=== PATIENT | male | born 1940 | race Hispanic/Latino ===

== ENCOUNTER 2017-10-03 14:09 | Inpatient (IN) | payer MEDICARE ==
[2017-10-03] MEDS ORDERED: PROVENTIL IH ONE (14:56)
[2017-10-03] MEDS ORDERED: ATROVENT IH ONE (14:56)
--- NOTE | 2017-10-03 15:03 | Emergency Department Report ---
HPI - General Chief Complaint: Dyspnea/Respdistress Time Seen by Provider: 10/03/17 14:46 - HPI HPI: Room 20 The patient is a 77-year-old male presented with a chief complaint of "pneumonia." The patient states his home health nurse told him he had pneumonia and she come to the emergency department. The patient states for the past 2-3 days she's had a cough productive of white sputum. Patient does admit to rhinorrhea in addition to a subjective fever. Patient denies pain of any type. Patient denies sick contacts. 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 - Family History Family history: no significant - Social History Smoking Status: Former Smoker (none since 1985) Substance Use Type: None ED Review of Systems ROS: Stated complaint: RESPIRATORY DISTRESS Other details as noted in HPI Constitutional: fever (subjective) Respiratory: cough Physical Exam - Physical Exam Vital Signs: Vital Signs 10/03/17 10/03/17 14:32 14:49 Temperature 98.1 F Pulse Rate 105 H Respiratory 22 Rate Blood Pressure 149/75 O2 Sat by Pulse 90 Oximetry Physical Exam: GENERAL: The patient is well-developed well-nourished male lying on stretcher not appearing to be in acute distress. [] HEENT: Normocephalic. Atraumatic. Extraocular motions are intact. Patient has moist mucous membranes. NECK: Supple. Trachea midline CHEST/LUNGS: Diffuse rhonchi. HEART/CARDIOVASCULAR: Regular. There is no tachycardia. There is no gallop rub or murmur. ABDOMEN: Abdomen is soft, nontender. Patient has normal bowel sounds. There is no abdominal distention. SKIN: There is no rash. There is no edema. There is no diaphoresis. NEURO: The patient is awake, alert, and oriented. The patient is cooperative. The patient has normal speech MUSCULOSKELETAL: There is no evidence of acute injury. ED Course Vital Signs 10/03/17 10/03/17 14:32 14:49 Temperature 98.1 F Pulse Rate 105 H Respiratory 22 Rate Blood Pressure 149/75 O2 Sat by Pulse 90 Oximetry ED Medical Decision Making - Lab Data Result diagrams: 10/03/17 14:50 10/03/17 14:50 Laboratory Tests 10/03/17 10/03/17 10/03/17 14:50 14:50 14:50 WBC 9.0 RBC 4.90 Hgb 14.4 Hct 44.2 MCV 90 MCH 29 MCHC 33 RDW 15.1 Plt Count 305 Lymph % (Auto) 5.5 L [place] % (Auto) 10.3 H Eos % (Auto) 0.2 Baso % (Auto) 0.3 Lymph # 0.5 L [place] # 0.9 H Eos # 0.0 Baso # 0.0 Seg Neutrophils % 83.7 H Seg Neutrophils # 7.6 PT 13.7 INR 1.00 POC ABG pH POC ABG pCO2 POC ABG pO2 POC ABG HCO3 POC ABG Total CO2 POC ABG O2 Sat POC ABG Base Excess VBG pH FiO2 Sodium 142 Potassium 4.3 Chloride 95.2 L Carbon Dioxide 35 H Anion Gap 16 BUN 18 Creatinine 0.6 L Estimated GFR > 60 BUN/Creatinine Ratio 30 Glucose 137 H Lactic Acid Calcium 8.9 Total Bilirubin 0.30 AST 17 ALT 11 Alkaline Phosphatase 125 Total Protein 6.5 Albumin 3.2 L Albumin/Globulin Ratio 1.0 10/03/17 10/03/17 10/03/17 14:50 14:50 15:52 WBC RBC Hgb Hct MCV MCH MCHC RDW Plt Count Lymph % (Auto) [place] % (Auto) Eos % (Auto) Baso % (Auto) Lymph # [place] # Eos # Baso # Seg Neutrophils % Seg Neutrophils # PT INR POC ABG pH 7.310 L POC ABG pCO2 79.8 H POC ABG pO2 54 L POC ABG HCO3 40.1 POC ABG Total CO2 43 POC ABG O2 Sat 82 POC ABG Base Excess 14 VBG pH 7.310 L FiO2 28 Sodium Potassium Chloride Carbon Dioxide Anion Gap BUN Creatinine Estimated GFR BUN/Creatinine Ratio Glucose Lactic Acid 1.60 Calcium Total Bilirubin AST ALT Alkaline Phosphatase Total Protein Albumin Albumin/Globulin Ratio Influenza negative - EKG Data -: EKG Interpreted by Sc EKG shows normal: sinus rhythm Rate: normal - EKG Data When compared to previous EKG there are: previous EKG unavailable Interpretation: nonspecific ST-T wave john (flattened T-wave in lead aVL) - Radiology Data Radiology results: image reviewed (chest x-ray) interpreted by me: Chest [id number] out right lung status post lobectomy - Differential Diagnosis pneumonia, influenza, bronchitis, pulmonary edema Critical care attestation.: If time is entered above; I have spent that time in minutes in the direct care of this critically ill patient, excluding procedure time. ED Disposition Clinical Impression: Shortness of breath, Hypoxia Disposition: OP ADMIT IP TO THIS HOSP Is pt being admited?: Yes Does the pt Need Aspirin: Yes Condition: Fair Referrals: JENNIFER SEVERINO MD [Primary Care Provider] - 3-5 Days Time of Disposition: 16:17 (hospitalist paged (Dr Carlos))
[2017-10-03 15:16] LABS: Basophils % (Auto) 0.3 % (0.0-1.8); Eosinophils % (Auto) 0.2 % (0.0-4.3); Hematocrit 44.2 % (35.5-45.6); Hemoglobin 14.4 gm/dl (11.8-15.2); Lymphocytes # (Auto) 0.5 K/mm3 (1.2-5.4); Lymphocytes % (Auto) 5.5 % (13.4-35.0); Mean Corpuscular HGB Conc 33 % (32-34); Mean Corpuscular Hemoglobin 29 pg (28-32); Mean Corpuscular Volume 90 fl (84-94); Monocytes # (Auto) 0.9 K/mm3 (0.0-0.8); Monocytes % (Auto) 10.3 % (0.0-7.3); Platelet Count 305 K/mm3 (140-440); Red Cell Distribution Width 15.1 % (13.2-15.2)
[2017-10-03 15:37] LABS: Alanine Aminotransferase 11 units/L (7-56); Albumin 3.2 g/dL (3.9-5); BUN/Creatinine Ratio 30; Blood Urea Nitrogen 18 mg/dL (9-20); Calcium 8.9 mg/dL (8.4-10.2); Hemolysis Index 1
[2017-10-03] MEDS ORDERED: ASPIRIN PO ONE (16:18)
[2017-10-03 16:57] LABS: Bacteria,Urine 1+ /HPF (Negative); Bilirubin,Urine NEG (Negative); Blood,Urine SM (Negative); Color,Urine Yellow (Yellow); Hyaline Casts,Urine 13 /LPF; Mucus,Urine 3+ /HPF; Nitrite,Urine NEG (Negative)
--- NOTE | 2017-10-03 17:17 | XRay Report ---
FINAL REPORT PROCEDURE: XR CHEST 1V AP TECHNIQUE: Chest radiograph anteroposterior view. CPT 88621 HISTORY: possible Sepsis COMPARISON: No prior studies are available for comparison. FINDINGS: There is opacification of the right hemithorax. The heart/mediastinum is shifted to the right. Correlate for prior surgeries. Alternatively this could be related to right lung severe atelectasis and possible effusion. The left lung is well aerated. No pneumothorax is visible. IMPRESSION: Opacification of the right [place]wick thorax, with shift of the heart and mediastinum to the right.Correlate for prior surgeries. Alternatively this could be related to right lung severe atelectasis and possible effusion.
[2017-10-03] MEDS ORDERED: COLACE PO PRN (19:13)
--- NOTE | 2017-10-03 19:16 | History and Physical Report ---
History of Present Illness Date of examination: 10/03/17 Date of admission: 10/03/17 Chief complaint: CC Cough and SOB for 1 week History of present illness: KALISPEL: 77 y/o male comes in for Cough congestion and cough pproductive of Mucoid sputum Patient sent by Home health nurse for possible Pneumonia.Patient is a poor historian.Brother at bed side who gives most of the history.Apparently Cold and Cough and SOB for 2 weeks.No fever/Chills.No Loss of appetite.No exacerbating or Relieving factors. Past Medical History Previous Medical History?: Yes Hx Arthritis: Yes (gout) Additional medical history: quit smoking 1985, pulmonary blastomycosis, oxygen dependent Surgical History Right lobectomy secondary to cancer Family History Family history: no significant Social History Smoking Status: Former Smoker (none since 1985) Substance Use Type: None Medications and Allergies Allergies Allergy/AdvReac Type Severity Reaction Status Date / Time No Known Allergies Allergy Unverified 10/03/17 14:38 Home Medications Medication Instructions Recorded Confirmed Last Taken Type Aspirin [Adult Low Dose Aspirin EC] 81 mg PO DAILY 10/03/17 10/03/17 Unknown History Colchicine [Colcrys] 0.6 mg PO BID 10/03/17 10/03/17 10/03/17 History Docusate Sodium [Colace] 100 mg PO QDAY PRN 10/03/17 10/03/17 Unknown History guaiFENesin ER [Mucinex ER] 600 mg PO Q12H 10/03/17 10/03/17 Unknown History Active Meds: Active Medications Aspirin (Halfprin Ec) 81 mg PO DAILY MARK Colchicine (Colcrys) 0.6 mg PO BID [facility] Docusate Sodium (Colace) 100 mg PO QDAY PRN PRN Reason: Constipation Guaifenesin (Mucinex Er) 600 mg PO Q12H [facility] Review of Systems All systems: negative Constitutional: no weight loss, no weight gain, no fever, no chills Ears, nose, mouth and throat: no dysphagia, no hoarseness, no sore throat, no swelling in mouth, no swelling in throat Cardiovascular: shortness of breath, no chest pain, no orthopnea, no palpitations, no rapid/irregular heart beat Respiratory: cough, cough with sputum, dyspnea on exertion, congestion, wheezing Gastrointestinal: no abdominal pain, no nausea, no vomiting, no diarrhea, no constipation Genitourinary Male: no dysuria, no hematuria, no flank pain, no discharge Rectal: no pain Musculoskeletal: no neck stiffness, no neck pain, no shooting arm pain, no arm numbness/tingling Integumentary: no rash, no pruritis, no redness Neurological: no head injury, no transient paralysis, no paralysis, no seizures , no syncope Psychiatric: no anxiety, no memory loss, no change in sleep habits Endocrine: no cold intolerance, no heat intolerance, no polyphagia Hematologic/Lymphatic: no easy bruising, no easy bleeding Allergic/Immunologic: no urticaria, no allergic rhinitis Exam - Constitutional Vitals: Temp Pulse Resp BP Pulse Ox 98.1 F 103 H 16 138/78 95 10/03/17 14:32 10/03/17 18:35 10/03/17 18:35 10/03/17 18:35 10/03/17 18:35 General appearance: Present: no acute distress, well-nourished - EENT Eyes: Present: PERRL ENT: hearing intact, clear oral mucosa - Neck Neck: Present: supple, normal ROM - Respiratory Respiratory effort: normal Respiratory: right: diminished (Absent), left: rhonchi, bilateral: CTA - Cardiovascular Heart rate: 80 Rhythm: regular Heart Sounds: Present: S1 & S2. Absent: rub, click - Extremities Extremities: no ischemia, pulses intact, pulses symmetrical, No edema Peripheral Pulses: within normal limits - Abdominal General gastrointestinal: Present: soft, non-tender, non-distended, normal bowel sounds Male genitourinary: Present: normal - Rectal Rectal Exam: deferred - Integumentary Integumentary: Present: clear, warm, dry - Musculoskeletal Musculoskeletal: gait normal, strength equal bilaterally - Psychiatric Psychiatric: appropriate mood/affect, intact judgment & insight - Neurologic Neurologic: CNII-XII intact, moves all extremities - Allied Health Allied health notes reviewed: nursing, case management Results - Labs CBC & Chem 7: 10/04/17 03:55 10/04/17 03:55 Labs: Laboratory Last Values WBC 9.0 K/mm3 (4.5-11.0) 10/03/17 14:50 RBC 4.90 M/mm3 (3.65-5.03) 10/03/17 14:50 Hgb 14.4 gm/dl (11.8-15.2) 10/03/17 14:50 Hct 44.2 % (35.5-45.6) 10/03/17 14:50 MCV 90 fl (84-94) 10/03/17 14:50 MCH 29 pg (28-32) 10/03/17 14:50 MCHC 33 % (32-34) 10/03/17 14:50 RDW 15.1 % (13.2-15.2) 10/03/17 14:50 Plt Count 305 K/mm3 (140-440) 10/03/17 14:50 Lymph % (Auto) 5.5 % (13.4-35.0) L 10/03/17 14:50 [place] % (Auto) 10.3 % (0.0-7.3) H 10/03/17 14:50 Eos % (Auto) 0.2 % (0.0-4.3) 10/03/17 14:50 Baso % (Auto) 0.3 % (0.0-1.8) 10/03/17 14:50 Lymph # 0.5 K/mm3 (1.2-5.4) L 10/03/17 14:50 [place] # 0.9 K/mm3 (0.0-0.8) H 10/03/17 14:50 Eos # 0.0 K/mm3 (0.0-0.4) 10/03/17 14:50 Baso # 0.0 K/mm3 (0.0-0.1) 10/03/17 14:50 Seg Neutrophils % 83.7 % (40.0-70.0) H 10/03/17 14:50 Seg Neutrophils # 7.6 K/mm3 (1.8-7.7) 10/03/17 14:50 PT 13.7 Sec. (12.2-14.9) 10/03/17 14:50 INR 1.00 (0.87-1.13) 10/03/17 14:50 POC ABG pH 7.310 (7.35-7.45) L 10/03/17 15:52 POC ABG pCO2 79.8 (35-45) H 10/03/17 15:52 POC ABG pO2 54 (80-105) L 10/03/17 15:52 POC ABG HCO3 40.1 10/03/17 15:52 POC ABG Total CO2 43 10/03/17 15:52 POC ABG O2 Sat 82 10/03/17 15:52 POC ABG Base Excess 14 10/03/17 15:52 VBG pH 7.310 (7.320-7.420) L 10/03/17 14:50 FiO2 28 % 10/03/17 15:52 Sodium 142 mmol/L (137-145) 10/03/17 14:50 Potassium 4.3 mmol/L (3.6-5.0) 10/03/17 14:50 Chloride 95.2 mmol/L (98-107) L 10/03/17 14:50 Carbon Dioxide 35 mmol/L (22-30) H 10/03/17 14:50 Anion Gap 16 mmol/L 10/03/17 14:50 BUN 18 mg/dL (9-20) 10/03/17 14:50 Creatinine 0.6 mg/dL (0.8-1.5) L 10/03/17 14:50 Estimated GFR > 60 ml/min 10/03/17 14:50 BUN/Creatinine Ratio 30 % 10/03/17 14:50 Glucose 137 mg/dL (75-100) H 10/03/17 14:50 Lactic Acid 2.20 mmol/L (0.7-2.0) H* 10/03/17 17:42 Calcium 8.9 mg/dL (8.4-10.2) 10/03/17 14:50 Total Bilirubin 0.30 mg/dL (0.1-1.2) 10/03/17 14:50 AST 17 units/L (5-40) 10/03/17 14:50 ALT 11 units/L (7-56) 10/03/17 14:50 Alkaline Phosphatase 125 units/L (35-129) 10/03/17 14:50 Total Protein 6.5 g/dL (6.3-8.2) 10/03/17 14:50 Albumin 3.2 g/dL (3.9-5) L 10/03/17 14:50 Albumin/Globulin Ratio 1.0 % 10/03/17 14:50 Urine Color Yellow (Yellow) 10/03/17 16:45 Urine Turbidity Clear (Clear) 10/03/17 16:45 Urine pH 5.0 (5.0-7.0) 10/03/17 16:45 Ur Specific [place] 1.026 (1.003-1.030) 10/03/17 16:45 Urine Protein 100 mg/dl mg/dL (Negative) 10/03/17 16:45 Urine Glucose (UA) Neg mg/dL (Negative) 10/03/17 16:45 Urine Ketones 20 mg/dL (Negative) 10/03/17 16:45 Urine Blood Sm (Negative) 10/03/17 16:45 Urine Nitrite Neg (Negative) 10/03/17 16:45 Urine Bilirubin Neg (Negative) 10/03/17 16:45 Urine Urobilinogen 2.0 mg/dL (<2.0) 10/03/17 16:45 Ur Leukocyte Esterase Neg (Negative) 10/03/17 16:45 Urine WBC (Auto) 2.0 /HPF (0.0-6.0) 10/03/17 16:45 Urine RBC (Auto) 7.0 /HPF (0.0-6.0) 10/03/17 16:45 U Epithel Cells (Auto) 1.0 /HPF (0-13.0) 10/03/17 16:45 Urine Bacteria (Auto) 1+ /HPF (Negative) 10/03/17 16:45 Hyaline Casts 13 /LPF 10/03/17 16:45 Urine Mucus 3+ /HPF 10/03/17 16:45 - Imaging and Cardiology EKG: report reviewed (NSR nonspecific ST-T wave john (flattened T-wave in lead aVL)) Chest x-ray: report reviewed (Rt lung opacifaction) Assessment and Plan Advance Directives: Yes (FC) VTE prophylaxis?: Chemical Plan of care discussed with patient/family: Yes - Patient Problems (1) COPD with exacerbation Current Visit: Yes Status: Acute Plan to address problem: IV abx neb tx and solumedrol (2) Respiratory failure with hypoxia Current Visit: Yes Status: Acute Qualifiers: Chronicity: acute Qualified Code(s): J96.01 - Acute respiratory failure with hypoxia Plan to address problem: As Above.Bipap if necessary (3) Gout Current Visit: Yes Status: Inactive Plan to address problem: Cont allopurinol (4) DVT prophylaxis Current Visit: Yes Status: Acute Plan to address problem: on lovenox
[2017-10-03] MEDS ORDERED: ZOFRAN IV PRN (19:18)
[2017-10-03] MEDS ORDERED: DULCOLAX PR PRN (19:18)
[2017-10-03] MEDS ORDERED: MILK OF MAGNESIA PO PRN (19:18)
[2017-10-03] MEDS ORDERED: TYLENOL PO PRN (19:18)
[2017-10-03] MEDS ORDERED: MORPHINE IV PRN (19:35)
[2017-10-03] MEDS ORDERED: NACL 0.9% 1000 ML 1,000 ML IV SCH (20:00)
[2017-10-03] MEDS ORDERED: DUONEB *Not for PRN Use IH SCH (20:00)
[2017-10-03] MEDS ORDERED: LOVENOX SUB-Q ONE (20:15)
[2017-10-03] MEDS ORDERED: LEVAQUIN 500MG/100ML 500 MG/100 ML BAG IV ONE (20:15)
[2017-10-03] MEDS ORDERED: MUCINEX ER PO ONE (20:15)
[2017-10-03] MEDS: DUONEB *Not for PRN Use IH SCH (20:52)
[2017-10-03] MEDS: LEVAQUIN 750MG/150ML 750 MG/150 ML BAG IV SCH (21:19)
[2017-10-03] MEDS: MUCINEX ER PO SCH (21:20)
[2017-10-03] MEDS: LOVENOX SUB-Q SCH (21:20)
[2017-10-03] MEDS ORDERED: LOVENOX SUB-Q SCH (22:00)
[2017-10-04] MEDS: DUONEB *Not for PRN Use IH SCH ×4 (03:07→20:38)
[2017-10-04 04:42] LABS: Hematocrit 46.4 % (35.5-45.6); Hemoglobin 14.9 gm/dl (11.8-15.2); Mean Corpuscular HGB Conc 32 % (32-34); Mean Corpuscular Hemoglobin 30 pg (28-32); Mean Corpuscular Volume 92 fl (84-94); Platelet Count 317 K/mm3 (140-440); Red Blood Count 5.04 M/mm3 (3.65-5.03); Red Cell Distribution Width 15.3 % (13.2-15.2)
[2017-10-04 05:10] LABS: Alanine Aminotransferase 11 units/L (7-56); Albumin 3.5 g/dL (3.9-5); BUN/Creatinine Ratio 34; Blood Urea Nitrogen 24 mg/dL (9-20); Calcium 9.1 mg/dL (8.4-10.2); Hemolysis Index 2
[2017-10-04 05:30] LABS: Basophils % (Manual) 0 % (0.0-1.8); Eosinophils % (Manual) 0 % (0.0-4.3); Total Cells Counted 100
[2017-10-04 05:31] LABS: RBC Morphology Normal
[2017-10-04] MEDS: LEVAQUIN 750MG/150ML 750 MG/150 ML BAG IV SCH (10:00)
[2017-10-04] MEDS: LOVENOX SUB-Q SCH (10:52)
[2017-10-04] MEDS: HALFPRIN EC PO SCH (11:00)
[2017-10-04] MEDS: COLCRYS PO SCH ×3 (11:00→22:01)
[2017-10-04] MEDS: MUCINEX ER PO SCH ×2 (11:00→22:00)
[2017-10-04] MEDS: PEPCID PO SCH ×3 (11:00→22:01)
--- NOTE | 2017-10-04 11:55 | Cat Scan Report ---
CT CHEST WITHOUT CONTRAST: 10/04/17 CLINICAL: Pneumonia. TECHNIQUE: Volumetric acquisition and 1.25 mm axial scan reconstructions without contrast. FINDINGS: Status post right pneumonectomy with benign soft tissue density and calcifications in the pneumonectomy space. Mild patchy opacities in the left upper lobe and mild interstitial opacities of the left lower lobe. No pulmonary consolidation. No pleural effusion. The heart and mediastinum are shifted to the right. The heart is normal size with coronary artery calcifications. The pulmonary arteries are relatively large. Moderate calcification of the aorta. Normal thyroid, trachea and esophagus. The upper abdomen is remarkable for a small liver and pancreas. The gallbladder and bile ducts are normal. Bilateral renal cysts. The largest cyst is in the upper pole the right kidney measures 5.8 cm. Degenerative changes in the spine and no suspicious bone lesions. IMPRESSION: 1. Status post right pneumonectomy. 2. Mild left upper lobe patchy pneumonia. 3. Mild left lower lobe atelectasis versus scar.
--- NOTE | 2017-10-04 13:58 | Progress Note ---
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 Patient is a poor historian. Brother at bed side who gives most of the history. Apparently Cold and Cough and SOB for 2 weeks.No fever/Chills.No Loss of appetite.No exacerbating or Relieving factors. Left lobar pneumonia possible gram-negative * Continue antibiotics IV * Await culture results * Lactic acidosis noted will repeat. * Start on gentle hydration Sepsis secondary to pneumonia * Repeat lactic acid level, continue antibiotics as noted. Follow cultures. * Send urine Legionella antigen Left lateral thigh wound * With care consult COPD with exacerbation * Pulmonary consult. * IV antibiotics and nebulizer and steroids started we'll taper the latter as needed Acute respiratory failure with hypoxia * Continue oxygen with as tolerated to hold levels. Complete immobility due to frailty * Fall precautions, PT OT evaluation Gout * Continue allopurinol DVT and GI prophylaxis Plan of care discussed with the patient and sibling Anticipated discharge in 24-48 hours History Interval history: F/U PNEUMONIA Patient is examined today in no acute distress still feels congested also lethargic. Brothers the room and provides most of the inflammation. Denies any chest pain nausea vomiting or diarrhea. According to the brother the patient's positioning helps with his breathing. Hospitalist Physical - Physical exam Narrative exam: VITAL SIGNS: Reviewed. GENERAL: Chronically ill-appearing patient. Vital signs as documented. HEAD: No signs of head trauma. EYES: Pupils are equal. Extraocular motions intact. EARS: Hearing grossly intact. MOUTH: Oropharynx is normal. NECK: No adenopathy, no JVD. CHEST: Chest with diminished breath sounds bilaterally. No wheezes, rales, or rhonchi. CARDIAC: Regular rate and rhythm. S1 and S2, without murmurs, gallops, or rubs. VASCULAR: No Edema. Peripheral pulses normal and equal in all extremities. ABDOMEN: Soft, without detectable tenderness. No sign of distention. No rebound or guarding, and no masses palpated. Bowel Sounds normal. MUSCULOSKELETAL: Good range of motion of all major joints. Extremities without clubbing, cyanosis or edema. NEUROLOGIC EXAM: Alert and oriented x 3. No focal sensory or strength deficits. Speech normal. Follows commands. Nonambulatory. Bedbound. PSYCHIATRIC: Mood normal. SKIN: Left lateral thigh wound, well-healed graft site on the right medial thigh - Constitutional Vitals: Temp Pulse Resp BP Pulse Ox 97.8 F 99 H 18 169/86 96 10/04/17 08:05 10/04/17 09:15 10/04/17 09:15 10/04/17 08:05 10/04/17 09:04 General appearance: Present: no acute distress, well-nourished Results - Labs CBC & Chem 7: 10/04/17 03:55 10/04/17 03:55 Labs: Laboratory Last Values WBC 11.2 K/mm3 (4.5-11.0) H 10/04/17 03:55 RBC 5.04 M/mm3 (3.65-5.03) H 10/04/17 03:55 Hgb 14.9 gm/dl (11.8-15.2) 10/04/17 03:55 Hct 46.4 % (35.5-45.6) H 10/04/17 03:55 MCV 92 fl (84-94) 10/04/17 03:55 MCH 30 pg (28-32) 10/04/17 03:55 MCHC 32 % (32-34) 10/04/17 03:55 RDW 15.3 % (13.2-15.2) H 10/04/17 03:55 Plt Count 317 K/mm3 (140-440) 10/04/17 03:55 Lymph % (Auto) 5.5 % (13.4-35.0) L 10/03/17 14:50 [place] % (Auto) 10.3 % (0.0-7.3) H 10/03/17 14:50 Eos % (Auto) 0.2 % (0.0-4.3) 10/03/17 14:50 Baso % (Auto) 0.3 % (0.0-1.8) 10/03/17 14:50 Lymph # 0.5 K/mm3 (1.2-5.4) L 10/03/17 14:50 [place] # 0.9 K/mm3 (0.0-0.8) H 10/03/17 14:50 Eos # 0.0 K/mm3 (0.0-0.4) 10/03/17 14:50 Baso # 0.0 K/mm3 (0.0-0.1) 10/03/17 14:50 Add Manual Diff Complete 10/04/17 03:55 Total Counted 100 10/04/17 03:55 Seg Neutrophils % Laundry Housekeeping Aide 10/04/17 03:55 Seg Neuts % (Manual) 78.0 % (40.0-70.0) H 10/04/17 03:55 Band Neutrophils % 18.0 % 10/04/17 03:55 Lymphocytes % (Manual) 3.0 % (13.4-35.0) L 10/04/17 03:55 Reactive Lymphs % (Man) 0 % 10/04/17 03:55 Monocytes % (Manual) 1.0 % (0.0-7.3) 10/04/17 03:55 Eosinophils % (Manual) 0 % (0.0-4.3) 10/04/17 03:55 Basophils % (Manual) 0 % (0.0-1.8) 10/04/17 03:55 Metamyelocytes % 0 % 10/04/17 03:55 Myelocytes % 0 % 10/04/17 03:55 Promyelocytes % 0 % 10/04/17 03:55 Blast Cells % 0 % 10/04/17 03:55 Nucleated RBC % Not Reportable 10/04/17 03:55 Seg Neutrophils # 7.6 K/mm3 (1.8-7.7) 10/03/17 14:50 Seg Neutrophils # Man 8.7 K/mm3 (1.8-7.7) H 10/04/17 03:55 Band Neutrophils # 2.0 K/mm3 10/04/17 03:55 Lymphocytes # (Manual) 0.3 K/mm3 (1.2-5.4) L 10/04/17 03:55 Abs React Lymphs (Man) 0.0 K/mm3 10/04/17 03:55 Monocytes # (Manual) 0.1 K/mm3 (0.0-0.8) 10/04/17 03:55 Eosinophils # (Manual) 0.0 K/mm3 (0.0-0.4) 10/04/17 03:55 Basophils # (Manual) 0.0 K/mm3 (0.0-0.1) 10/04/17 03:55 Metamyelocytes # 0.0 K/mm3 10/04/17 03:55 Myelocytes # 0.0 K/mm3 10/04/17 03:55 Promyelocytes # 0.0 K/mm3 10/04/17 03:55 Blast Cells # 0.0 K/mm3 10/04/17 03:55 WBC Morphology Not Reportable 10/04/17 03:55 Hypersegmented Neuts Not Reportable 10/04/17 03:55 Hyposegmented Neuts Not Reportable 10/04/17 03:55 Hypogranular Neuts Not Reportable 10/04/17 03:55 Smudge Cells Not Reportable 10/04/17 03:55 Toxic Granulation Not Reportable 10/04/17 03:55 Toxic Vacuolation Not Reportable 10/04/17 03:55 Dohle Bodies Not Reportable 10/04/17 03:55 Pelger-Huet Anomaly Not Reportable 10/04/17 03:55 Pardeep Rods Not Reportable 10/04/17 03:55 Platelet Estimate Appears normal 10/04/17 03:55 Clumped Platelets Not Reportable 10/04/17 03:55 Plt Clumps, EDTA Not Reportable 10/04/17 03:55 Large Platelets Not Reportable 10/04/17 03:55 Giant Platelets Not Reportable 10/04/17 03:55 Platelet Satelliting Not Reportable 10/04/17 03:55 Plt Morphology Comment Not Reportable 10/04/17 03:55 RBC Morphology Normal 10/04/17 03:55 Dimorphic RBCs Not Reportable 10/04/17 03:55 Polychromasia Not Reportable 10/04/17 03:55 Hypochromasia Not Reportable 10/04/17 03:55 Poikilocytosis Not Reportable 10/04/17 03:55 Anisocytosis Not Reportable 10/04/17 03:55 Microcytosis Not Reportable 10/04/17 03:55 Macrocytosis Not Reportable 10/04/17 03:55 Spherocytes Not Reportable 10/04/17 03:55 Pappenheimer Bodies Not Reportable 10/04/17 03:55 Sickle Cells Not Reportable 10/04/17 03:55 Target Cells Not Reportable 10/04/17 03:55 Tear Drop Cells Not Reportable 10/04/17 03:55 Ovalocytes Not Reportable 10/04/17 03:55 Helmet Cells Not Reportable 10/04/17 03:55 [place] Bodies Not Reportable 10/04/17 03:55 Enochs Rings Not Reportable 10/04/17 03:55 Aditi Cells Not Reportable 10/04/17 03:55 Bite Cells Not Reportable 10/04/17 03:55 Crenated Cell Not Reportable 10/04/17 03:55 Elliptocytes Not Reportable 10/04/17 03:55 Acanthocytes (Spur) Not Reportable 10/04/17 03:55 Rouleaux Not Reportable 10/04/17 03:55 Hemoglobin C Crystals Not Reportable 10/04/17 03:55 Schistocytes Not Reportable 10/04/17 03:55 Malaria parasites Not Reportable 10/04/17 03:55 Aleksandar Bodies Not Reportable 10/04/17 03:55 Hem Pathologist Commnt No 10/04/17 03:55 PT 13.7 Sec. (12.2-14.9) 10/03/17 14:50 INR 1.00 (0.87-1.13) 10/03/17 14:50 POC ABG pH 7.310 (7.35-7.45) L 10/03/17 15:52 POC ABG pCO2 79.8 (35-45) H 10/03/17 15:52 POC ABG pO2 54 (80-105) L 10/03/17 15:52 POC ABG HCO3 40.1 10/03/17 15:52 POC ABG Total CO2 43 10/03/17 15:52 POC ABG O2 Sat 82 10/03/17 15:52 POC ABG Base Excess 14 10/03/17 15:52 VBG pH 7.310 (7.320-7.420) L 10/03/17 14:50 FiO2 28 % 10/03/17 15:52 Sodium 144 mmol/L (137-145) 10/04/17 03:55 Potassium 5.0 mmol/L (3.6-5.0) 10/04/17 03:55 Chloride 95.2 mmol/L (98-107) L 10/04/17 03:55 Carbon Dioxide 35 mmol/L (22-30) H 10/04/17 03:55 Anion Gap 19 mmol/L 10/04/17 03:55 BUN 24 mg/dL (9-20) H 10/04/17 03:55 Creatinine 0.7 mg/dL (0.8-1.5) L 10/04/17 03:55 Estimated GFR > 60 ml/min 10/04/17 03:55 BUN/Creatinine Ratio 34 % 10/04/17 03:55 Glucose 176 mg/dL (75-100) H 10/04/17 03:55 Hemoglobin A1c 5.6 % (4-6) 10/03/17 14:50 Lactic Acid 1.20 mmol/L (0.7-2.0) 10/04/17 09:12 Calcium 9.1 mg/dL (8.4-10.2) 10/04/17 03:55 Total Bilirubin 0.30 mg/dL (0.1-1.2) 10/04/17 03:55 AST 17 units/L (5-40) 10/04/17 03:55 ALT 11 units/L (7-56) 10/04/17 03:55 Alkaline Phosphatase 132 units/L (35-129) H 10/04/17 03:55 Total Protein 6.9 g/dL (6.3-8.2) 10/04/17 03:55 Albumin 3.5 g/dL (3.9-5) L 10/04/17 03:55 Albumin/Globulin Ratio 1.0 % 10/04/17 03:55 Urine Color Yellow (Yellow) 10/03/17 16:45 Urine Turbidity Clear (Clear) 10/03/17 16:45 Urine pH 5.0 (5.0-7.0) 10/03/17 16:45 Ur Specific [place] 1.026 (1.003-1.030) 10/03/17 16:45 Urine Protein 100 mg/dl mg/dL (Negative) 10/03/17 16:45 Urine Glucose (UA) Neg mg/dL (Negative) 10/03/17 16:45 Urine Ketones 20 mg/dL (Negative) 10/03/17 16:45 Urine Blood Sm (Negative) 10/03/17 16:45 Urine Nitrite Neg (Negative) 10/03/17 16:45 Urine Bilirubin Neg (Negative) 10/03/17 16:45 Urine Urobilinogen 2.0 mg/dL (<2.0) 10/03/17 16:45 Ur Leukocyte Esterase Neg (Negative) 10/03/17 16:45 Urine WBC (Auto) 2.0 /HPF (0.0-6.0) 10/03/17 16:45 Urine RBC (Auto) 7.0 /HPF (0.0-6.0) 10/03/17 16:45 U Epithel Cells (Auto) 1.0 /HPF (0-13.0) 10/03/17 16:45 Urine Bacteria (Auto) 1+ /HPF (Negative) 10/03/17 16:45 Hyaline Casts 13 /LPF 10/03/17 16:45 Urine Mucus 3+ /HPF 10/03/17 16:45 - Imaging and Cardiology Chest x-ray: image reviewed (left lobar pneumonia) CT scan - chest: image reviewed (left lobar pneumonia with atelectasis)
[2017-10-04] MEDS: NACL 0.9% 1000 ML 1,000 ML IV SCH (14:05)
[2017-10-04] MEDS: ZITHROMAX 500 MG in NACL 0.9% 250ML 250 ML IV SCH (15:24)
[2017-10-04] MEDS: cefTRIAXone 2 GM in NACL 0.9% 20 ML IV SCH (16:30)
--- NOTE | 2017-10-04 20:53 | Event Note ---
Date: 10/04/[address] Carlos thank you for asking us to participate in the care of this patient This 77 year old white male admitted with cough and productive white sputum.Patient also complained shortness of breath. Denies chest pain, fever or chills.Patient has history of smoking cigarets. Stopped smoking 1985.Unable to get furthur history.Patients chest xray showing complete Opacification of right chest.Patient has right pneumonectomy.. No KNOwn drug allergies.Patient has history of Blastomycosis. IMpression: 1. Acute hypercapnic and hypxic respiratory failure. 2. COPD Exacerbation. 3. History of right pneumonectomy. 4. Pneumonia PLAN: 1. O2 2 litres via nasal canula. 2. Albuterol/atrovent aerosol treatments q 6 hours. 3. Continue I/V solumedral 4. Continue cef trioxone and Zithromax. 5. Continue Lovenox. 6. Continue Famotadine. .
[2017-10-05] MEDS: DUONEB *Not for PRN Use IH SCH ×4 (01:59→21:20)
[2017-10-05] MEDS: PERCOCET 5/325 PO PRN ×2 (04:22→10:13)
[2017-10-05 07:11] LABS: Hemoglobin 12.4 gm/dl (11.8-15.2); Mean Corpuscular HGB Conc 32 % (32-34); Mean Corpuscular Hemoglobin 29 pg (28-32); Mean Corpuscular Volume 92 fl (84-94); Platelet Count 277 K/mm3 (140-440); Red Blood Count 4.21 M/mm3 (3.65-5.03); Red Cell Distribution Width 14.9 % (13.2-15.2)
[2017-10-05 07:17] LABS: Hematocrit 40.7 % (35.5-45.6)
[2017-10-05 07:25] LABS: BUN/Creatinine Ratio 38; Blood Urea Nitrogen 30 mg/dL (9-20); Calcium 8.3 mg/dL (8.4-10.2); Hemolysis Index 20
[2017-10-05] MEDS ORDERED: ROCEPHIN/NS 2 GM/100 ML 2 GM/100 ML BAG IV SCH (10:00)
[2017-10-05] MEDS: LOVENOX SUB-Q SCH (10:05)
[2017-10-05] MEDS: MUCINEX ER PO SCH ×2 (10:06→21:00)
[2017-10-05] MEDS: PEPCID PO SCH ×2 (10:06→21:00)
[2017-10-05] MEDS: COLCRYS PO SCH ×2 (10:07→21:00)
[2017-10-05] MEDS: HALFPRIN EC PO SCH (10:07)
[2017-10-05] MEDS: ZITHROMAX 500 MG in NACL 0.9% 250ML 250 ML IV SCH (10:12)
[2017-10-05] MEDS: cefTRIAXone 2 GM in NACL 0.9% 20 ML IV SCH (10:12)
[2017-10-05] MEDS: NACL 0.9% 1000 ML 1,000 ML IV SCH ×2 (12:46→20:51)
--- NOTE | 2017-10-05 21:44 | Progress Note ---
Assessment and Plan Patient is in deep sleep. No acute respiratory distress. O2 saturation 97% on 3 litres O2. - Patient Problems (1) COPD with exacerbation Current Visit: Yes Status: Acute Plan to address problem: O2 3 litres via nasal canula. Albuterol/atrovent aerosol treatments q 6 hours. Continue I/V solumedral. (2) Respiratory failure with hypoxia Current Visit: Yes Status: Acute Qualifiers: Chronicity: acute Qualified Code(s): J96.01 - Acute respiratory failure with hypoxia Plan to address problem: O2 3 litres via nasa canula. Albuerol/atrovent aerosol treatments q 6 hurs. Cntinue I/V solumedral. Continue S/C Lovenox. Continue famotadine. (3) Pneumonia Current Visit: Yes Status: Acute Plan to address problem: Patient is on ceftrioxone and zithromax. (4) H/O pneumonectomy Current Visit: Yes Status: Acute Plan to address problem: Patient has history of right pneumonectomy. Subjective Date of service: 10/05/17 Interval history: Patient is in deep sleep. No acute respiratory distress. O2 saturation 97% on 3 litres O2. Objective Vital Signs - 12hr 10/05/17 10/05/17 10/05/17 10:13 11:13 13:05 Temperature 98.0 F Pulse Rate 89 Pulse Rate [ Anterior Bilateral Throughout] Respiratory 22 20 Rate Respiratory Rate [Anterior Bilateral Throughout] Respiratory 22 Rate [Left Foot ] Blood Pressure 127/47 O2 Sat by Pulse 96 Oximetry 10/05/17 10/05/17 14:37 14:50 Temperature Pulse Rate Pulse Rate [ 96 H 94 H Anterior Bilateral Throughout] Respiratory Rate Respiratory 17 16 Rate [Anterior Bilateral Throughout] Respiratory Rate [Left Foot ] Blood Pressure O2 Sat by Pulse Oximetry Constitutional: no acute distress, asleep Eyes: non-icteric ENT: oropharynx moist Neck: supple, no lymphadenopathy Ascultation: Right: diminished breath sounds (ABsent breath sounds on right side.), Bilateral: rhonchi ( few rhonchi on left side.) Cardiovascular: regular rate and rhythm Gastrointestinal: normoactive bowel sounds Extremities: no cyanosis, no edema Neurologic: non-focal exam, pupils equal and round, other (Patient is in deep sleep) Psychiatric: other (Patient is in deep sleep) CBC and BMP: 10/05/17 06:29 10/05/17 06:29 ABG, PT/INR, D-dimer: ABG POC ABG pH 7.310 (7.35-7.45) L 10/03/17 15:52 POC ABG pCO2 79.8 (35-45) H 10/03/17 15:52 POC ABG pO2 54 (80-105) L 10/03/17 15:52 POC ABG HCO3 40.1 10/03/17 15:52 POC ABG Total CO2 43 10/03/17 15:52 POC ABG O2 Sat 82 10/03/17 15:52 PT/INR, D-dimer PT 13.7 Sec. (12.2-14.9) 10/03/17 14:50 INR 1.00 (0.87-1.13) 10/03/17 14:50 Abnormal lab findings: Abnormal Labs 10/03/17 10/03/17 10/03/17 14:50 14:50 14:50 WBC RBC Hct RDW Lymph % (Auto) 5.5 L [place] % (Auto) 10.3 H Lymph # 0.5 L [place] # 0.9 H Seg Neutrophils % 83.7 H Seg Neuts % (Manual) Lymphocytes % (Manual) Seg Neutrophils # Man Lymphocytes # (Manual) POC ABG pH POC ABG pCO2 POC ABG pO2 VBG pH 7.310 L Chloride 95.2 L Carbon Dioxide 35 H BUN Creatinine 0.6 L Glucose 137 H Lactic Acid Calcium Alkaline Phosphatase Albumin 3.2 L 10/03/17 10/03/17 10/04/17 15:52 17:42 03:55 WBC 11.2 H RBC 5.04 H Hct 46.4 H RDW 15.3 H Lymph % (Auto) [place] % (Auto) Lymph # Nelson # Seg Neutrophils % Seg Neuts % (Manual) 78.0 H Lymphocytes % (Manual) 3.0 L Seg Neutrophils # Man 8.7 H Lymphocytes # (Manual) 0.3 L POC ABG pH 7.310 L POC ABG pCO2 79.8 H POC ABG pO2 54 L VBG pH Chloride Carbon Dioxide BUN Creatinine Glucose Lactic Acid 2.20 H* Calcium Alkaline Phosphatase Albumin 10/04/17 10/05/17 10/05/17 03:55 06:29 06:29 WBC 12.3 H RBC Hct RDW Lymph % (Auto) [place] % (Auto) Lymph # [place] # Seg Neutrophils % Seg Neuts % (Manual) Lymphocytes % (Manual) Seg Neutrophils # Man Lymphocytes # (Manual) POC ABG pH POC ABG pCO2 POC ABG pO2 VBG pH Chloride 95.2 L Carbon Dioxide 35 H 31 H BUN 24 H 30 H Creatinine 0.7 L Glucose 176 H 148 H Lactic Acid Calcium 8.3 L Alkaline Phosphatase 132 H Albumin 3.5 L Chest x-ray: report reviewed (Complete Opacification on right side.), image reviewed CT scan - chest: report reviewed (Right pneumonectomy and patchy infiltrate on the left.), image reviewed
[2017-10-06] MEDS: DUONEB *Not for PRN Use IH SCH ×4 (01:39→19:07)
[2017-10-06] MEDS: MUCINEX ER PO SCH ×2 (10:13→21:25)
[2017-10-06] MEDS: PEPCID PO SCH ×2 (10:14→21:26)
[2017-10-06] MEDS: LOVENOX SUB-Q SCH (10:14)
[2017-10-06] MEDS: HALFPRIN EC PO SCH (10:14)
[2017-10-06] MEDS: COLCRYS PO SCH ×2 (10:14→21:25)
[2017-10-06] MEDS: cefTRIAXone 2 GM in NACL 0.9% 20 ML IV SCH (10:21)
[2017-10-06] MEDS: ZITHROMAX 500 MG in NACL 0.9% 250ML 250 ML IV SCH (10:21)
[2017-10-06] MEDS ORDERED: Fluarix Quad 2017-2018(36 MOS+ IM ONE (12:00)
--- NOTE | 2017-10-06 18:04 | Progress Note ---
Assessment and Plan Patient alert, awake. No acute respiratory distress. O2 saturation 97% on 3 litres O2.Patients PO2 54 on room air. Patient is candidate for home O2. - Patient Problems (1) COPD with exacerbation Current Visit: Yes Status: Acute Plan to address problem: O2 3 litres via nasal canula. Albuterol/atrovent aerosol treatments q 6 hours. Continue I/V solumedral. (2) Respiratory failure with hypoxia Current Visit: Yes Status: Acute Qualifiers: Chronicity: acute Qualified Code(s): J96.01 - Acute respiratory failure with hypoxia Plan to address problem: O2 3 litres via nasa canula. Albuerol/atrovent aerosol treatments q 6 hurs. Cntinue I/V solumedral. Continue S/C Lovenox. Continue famotadine. (3) Pneumonia Current Visit: Yes Status: Acute Plan to address problem: Patient is on ceftrioxone and zithromax. (4) H/O pneumonectomy Current Visit: Yes Status: Acute Plan to address problem: Patient has history of right pneumonectomy. Subjective Date of service: 10/06/17 Interval history: Patient alert, awake. No acute respiratory distress. O2 saturation 97% on 3 litres O2.Patients PO2 54 on room air. Patient is candidate for home O2. Objective Vital Signs - 12hr 10/06/17 10/06/17 10/06/17 07:45 08:44 08:55 Temperature 97.3 F L Pulse Rate 76 Pulse Rate [ 73 77 Anterior Bilateral Throughout] Respiratory 20 Rate Respiratory 20 20 Rate [Anterior Bilateral Throughout] Blood Pressure 129/63 O2 Sat by Pulse 99 100 Oximetry 10/06/17 10/06/17 10/06/17 13:37 14:27 14:44 Temperature 97.6 F Pulse Rate 74 Pulse Rate [ 74 75 Anterior Bilateral Throughout] Respiratory 20 Rate Respiratory 20 20 Rate [Anterior Bilateral Throughout] Blood Pressure 123/59 O2 Sat by Pulse 97 Oximetry Constitutional: no acute distress, alert Eyes: non-icteric ENT: oropharynx moist Neck: supple, no lymphadenopathy Ascultation: Right: diminished breath sounds (ABsent breath sounds on right side.), Bilateral: rhonchi ( few rhonchi on left side.) Cardiovascular: regular rate and rhythm Gastrointestinal: normoactive bowel sounds Extremities: no cyanosis, no edema Neurologic: non-focal exam, pupils equal and round, other (Patient is in deep sleep) Psychiatric: other (Patient is in deep sleep) CBC and BMP: 10/05/17 06:29 10/05/17 06:29 ABG, PT/INR, D-dimer: ABG POC ABG pH 7.310 (7.35-7.45) L 10/03/17 15:52 POC ABG pCO2 79.8 (35-45) H 10/03/17 15:52 POC ABG pO2 54 (80-105) L 10/03/17 15:52 POC ABG HCO3 40.1 10/03/17 15:52 POC ABG Total CO2 43 10/03/17 15:52 POC ABG O2 Sat 82 10/03/17 15:52 PT/INR, D-dimer PT 13.7 Sec. (12.2-14.9) 10/03/17 14:50 INR 1.00 (0.87-1.13) 10/03/17 14:50 Abnormal lab findings: Abnormal Labs 10/03/17 10/03/17 10/03/17 14:50 14:50 14:50 WBC RBC Hct RDW Lymph % (Auto) 5.5 L [place] % (Auto) 10.3 H Lymph # 0.5 L [place] # 0.9 H Seg Neutrophils % 83.7 H Seg Neuts % (Manual) Lymphocytes % (Manual) Seg Neutrophils # Man Lymphocytes # (Manual) POC ABG pH POC ABG pCO2 POC ABG pO2 VBG pH 7.310 L Chloride 95.2 L Carbon Dioxide 35 H BUN Creatinine 0.6 L Glucose 137 H Lactic Acid Calcium Alkaline Phosphatase Albumin 3.2 L 10/03/17 10/03/17 10/04/17 15:52 17:42 03:55 WBC 11.2 H RBC 5.04 H Hct 46.4 H RDW 15.3 H Lymph % (Auto) [place] % (Auto) Lymph # [place] # Seg Neutrophils % Seg Neuts % (Manual) 78.0 H Lymphocytes % (Manual) 3.0 L Seg Neutrophils # Man 8.7 H Lymphocytes # (Manual) 0.3 L POC ABG pH 7.310 L POC ABG pCO2 79.8 H POC ABG pO2 54 L VBG pH Chloride Carbon Dioxide BUN Creatinine Glucose Lactic Acid 2.20 H* Calcium Alkaline Phosphatase Albumin 10/04/17 10/05/17 10/05/17 03:55 06:29 06:29 WBC 12.3 H RBC Hct RDW Lymph % (Auto) [place] % (Auto) Lymph # [place] # Seg Neutrophils % Seg Neuts % (Manual) Lymphocytes % (Manual) Seg Neutrophils # Man Lymphocytes # (Manual) POC ABG pH POC ABG pCO2 POC ABG pO2 VBG pH Chloride 95.2 L Carbon Dioxide 35 H 31 H BUN 24 H 30 H Creatinine 0.7 L Glucose 176 H 148 H Lactic Acid Calcium 8.3 L Alkaline Phosphatase 132 H Albumin 3.5 L
--- NOTE | 2017-10-06 18:24 | Progress Note ---
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 Patient is a poor historian. Brother at bed side who gives most of the history. Apparently Cold and Cough and SOB for 2 weeks.No fever/Chills.No Loss of appetite.No exacerbating or Relieving factors. Left lobar pneumonia possible gram-negative Continue antibiotics IV Await culture results Lactic acidosis noted will repeat. Start on gentle hydration Sepsis secondary to pneumonia Repeat lactic acid level, continue antibiotics as noted. Follow cultures. Send urine Legionella antigen Left lateral thigh wound With care consult COPD with exacerbation Pulmonary consult appreciated IV antibiotics and nebulizer and steroids started we'll taper the latter as needed Acute respiratory failure with hypoxia, hx of R pneumonectomy Continue oxygen with as tolerated to hold levels. Complete immobility due to frailty Fall precautions, PT OT evaluation Gout Continue allopurinol Plan of care discussed with the patient and sibling Anticipated discharge in 1-2 days History Interval history: Review of systems Constitutional: No fevers, no malaise, no joint pains CVS: No chest pain, no orthopnea, no dyspnea on exertion, no pedal edema GI: No abdominal pain, no diarrhea, no vomiting, no constipation Respiratory: admits shortness of breath, and dry cough, no wheezing Hospitalist Physical - Physical exam Narrative exam: VITAL SIGNS: Reviewed. GENERAL: Chronically ill-appearing patient. Vital signs as documented. HEAD: No signs of head trauma. EYES: Pupils are equal. Extraocular motions intact. EARS: Hearing grossly intact. MOUTH: Oropharynx is normal. NECK: No adenopathy, no JVD. CHEST: Chest with diminished breath sounds bilaterally. No wheezes, rales, or rhonchi. CARDIAC: Regular rate and rhythm. S1 and S2, without murmurs, gallops, or rubs. VASCULAR: No Edema. Peripheral pulses normal and equal in all extremities. ABDOMEN: Soft, without detectable tenderness. No sign of distention. No rebound or guarding, and no masses palpated. Bowel Sounds normal. MUSCULOSKELETAL: Good range of motion of all major joints. Extremities without clubbing, cyanosis or edema. NEUROLOGIC EXAM: Alert and oriented x 3. No focal sensory or strength deficits. Speech normal. Follows commands. Nonambulatory. Bedbound. PSYCHIATRIC: Mood normal. SKIN: Left lateral thigh wound, well-healed graft site on the right medial thigh - Constitutional Vitals: Temp Pulse Resp BP Pulse Ox 97.6 F 74 20 123/59 97 10/06/17 14:44 10/06/17 14:44 10/06/17 14:44 10/06/17 14:44 10/06/17 14:44 General appearance: Present: no acute distress, well-nourished Results - Labs CBC & Chem 7: 10/05/17 06:29 10/05/17 06:29 Labs: Laboratory Last Values WBC 12.3 K/mm3 (4.5-11.0) H 10/05/17 06:29 RBC 4.21 M/mm3 (3.65-5.03) 10/05/17 06:29 Hgb 12.4 gm/dl (11.8-15.2) 10/05/17 06:29 Hct 40.7 % (35.5-45.6) 10/05/17 06:29 MCV 92 fl (84-94) 10/05/17 06:29 MCH 29 pg (28-32) 10/05/17 06:29 MCHC 32 % (32-34) 10/05/17 06:29 RDW 14.9 % (13.2-15.2) 10/05/17 06:29 Plt Count 277 K/mm3 (140-440) 10/05/17 06:29 Lymph % (Auto) 5.5 % (13.4-35.0) L 10/03/17 14:50 [place] % (Auto) 10.3 % (0.0-7.3) H 10/03/17 14:50 Eos % (Auto) 0.2 % (0.0-4.3) 10/03/17 14:50 Baso % (Auto) 0.3 % (0.0-1.8) 10/03/17 14:50 Lymph # 0.5 K/mm3 (1.2-5.4) L 10/03/17 14:50 [place] # 0.9 K/mm3 (0.0-0.8) H 10/03/17 14:50 Eos # 0.0 K/mm3 (0.0-0.4) 10/03/17 14:50 Baso # 0.0 K/mm3 (0.0-0.1) 10/03/17 14:50 Add Manual Diff Complete 10/04/17 03:55 Total Counted 100 10/04/17 03:55 Seg Neutrophils % Corn [employer] Maker 10/04/17 03:55 Seg Neuts % (Manual) 78.0 % (40.0-70.0) H 10/04/17 03:55 Band Neutrophils % 18.0 % 10/04/17 03:55 Lymphocytes % (Manual) 3.0 % (13.4-35.0) L 10/04/17 03:55 Reactive Lymphs % (Man) 0 % 10/04/17 03:55 Monocytes % (Manual) 1.0 % (0.0-7.3) 10/04/17 03:55 Eosinophils % (Manual) 0 % (0.0-4.3) 10/04/17 03:55 Basophils % (Manual) 0 % (0.0-1.8) 10/04/17 03:55 Metamyelocytes % 0 % 10/04/17 03:55 Myelocytes % 0 % 10/04/17 03:55 Promyelocytes % 0 % 10/04/17 03:55 Blast Cells % 0 % 10/04/17 03:55 Nucleated RBC % Not Reportable 10/04/17 03:55 Seg Neutrophils # 7.6 K/mm3 (1.8-7.7) 10/03/17 14:50 Seg Neutrophils # Man 8.7 K/mm3 (1.8-7.7) H 10/04/17 03:55 Band Neutrophils # 2.0 K/mm3 10/04/17 03:55 Lymphocytes # (Manual) 0.3 K/mm3 (1.2-5.4) L 10/04/17 03:55 Abs React Lymphs (Man) 0.0 K/mm3 10/04/17 03:55 Monocytes # (Manual) 0.1 K/mm3 (0.0-0.8) 10/04/17 03:55 Eosinophils # (Manual) 0.0 K/mm3 (0.0-0.4) 10/04/17 03:55 Basophils # (Manual) 0.0 K/mm3 (0.0-0.1) 10/04/17 03:55 Metamyelocytes # 0.0 K/mm3 10/04/17 03:55 Myelocytes # 0.0 K/mm3 10/04/17 03:55 Promyelocytes # 0.0 K/mm3 10/04/17 03:55 Blast Cells # 0.0 K/mm3 10/04/17 03:55 WBC Morphology Not Reportable 10/04/17 03:55 Hypersegmented Neuts Not Reportable 10/04/17 03:55 Hyposegmented Neuts Not Reportable 10/04/17 03:55 Hypogranular Neuts Not Reportable 10/04/17 03:55 Smudge Cells Not Reportable 10/04/17 03:55 Toxic Granulation Not Reportable 10/04/17 03:55 Toxic Vacuolation Not Reportable 10/04/17 03:55 Dohle Bodies Not Reportable 10/04/17 03:55 Pelger-Huet Anomaly Not Reportable 10/04/17 03:55 Pardeep Rods Not Reportable 10/04/17 03:55 Platelet Estimate Appears normal 10/04/17 03:55 Clumped Platelets Not Reportable 10/04/17 03:55 Plt Clumps, EDTA Not Reportable 10/04/17 03:55 Large Platelets Not Reportable 10/04/17 03:55 Giant Platelets Not Reportable 10/04/17 03:55 Platelet Satelliting Not Reportable 10/04/17 03:55 Plt Morphology Comment Not Reportable 10/04/17 03:55 RBC Morphology Normal 10/04/17 03:55 Dimorphic RBCs Not Reportable 10/04/17 03:55 Polychromasia Not Reportable 10/04/17 03:55 Hypochromasia Not Reportable 10/04/17 03:55 Poikilocytosis Not Reportable 10/04/17 03:55 Anisocytosis Not Reportable 10/04/17 03:55 Microcytosis Not Reportable 10/04/17 03:55 Macrocytosis Not Reportable 10/04/17 03:55 Spherocytes Not Reportable 10/04/17 03:55 Pappenheimer Bodies Not Reportable 10/04/17 03:55 Sickle Cells Not Reportable 10/04/17 03:55 Target Cells Not Reportable 10/04/17 03:55 Tear Drop Cells Not Reportable 10/04/17 03:55 Ovalocytes Not Reportable 10/04/17 03:55 Helmet Cells Not Reportable 10/04/17 03:55 Contreras-Juniata Bodies Not Reportable 10/04/17 03:55 Grabill Rings Not Reportable 10/04/17 03:55 Aditi Cells Not Reportable 10/04/17 03:55 Bite Cells Not Reportable 10/04/17 03:55 Crenated Cell Not Reportable 10/04/17 03:55 Elliptocytes Not Reportable 10/04/17 03:55 Acanthocytes (Spur) Not Reportable 10/04/17 03:55 Rouleaux Not Reportable 10/04/17 03:55 Hemoglobin C Crystals Not Reportable 10/04/17 03:55 Schistocytes Not Reportable 10/04/17 03:55 Malaria parasites Not Reportable 10/04/17 03:55 Aleksandar Bodies Not Reportable 10/04/17 03:55 Hem Pathologist Commnt No 10/04/17 03:55 PT 13.7 Sec. (12.2-14.9) 10/03/17 14:50 INR 1.00 (0.87-1.13) 10/03/17 14:50 POC ABG pH 7.310 (7.35-7.45) L 10/03/17 15:52 POC ABG pCO2 79.8 (35-45) H 10/03/17 15:52 POC ABG pO2 54 (80-105) L 10/03/17 15:52 POC ABG HCO3 40.1 10/03/17 15:52 POC ABG Total CO2 43 10/03/17 15:52 POC ABG O2 Sat 82 10/03/17 15:52 POC ABG Base Excess 14 10/03/17 15:52 VBG pH 7.310 (7.320-7.420) L 10/03/17 14:50 FiO2 28 % 10/03/17 15:52 Sodium 144 mmol/L (137-145) 10/05/17 06:29 Potassium 5.0 mmol/L (3.6-5.0) 10/05/17 06:29 Chloride 101.2 mmol/L (98-107) 10/05/17 06:29 Carbon Dioxide 31 mmol/L (22-30) H 10/05/17 06:29 Anion Gap 17 mmol/L 10/05/17 06:29 BUN 30 mg/dL (9-20) H 10/05/17 06:29 Creatinine 0.8 mg/dL (0.8-1.5) 10/05/17 06:29 Estimated GFR > 60 ml/min 10/05/17 06:29 BUN/Creatinine Ratio 38 % 10/05/17 06:29 Glucose 148 mg/dL (75-100) H 10/05/17 06:29 Hemoglobin A1c 5.6 % (4-6) 10/03/17 14:50 Lactic Acid 1.00 mmol/L (0.7-2.0) 10/04/17 14:33 Calcium 8.3 mg/dL (8.4-10.2) L 10/05/17 06:29 Total Bilirubin 0.30 mg/dL (0.1-1.2) 10/04/17 03:55 AST 17 units/L (5-40) 10/04/17 03:55 ALT 11 units/L (7-56) 10/04/17 03:55 Alkaline Phosphatase 132 units/L (35-129) H 10/04/17 03:55 Total Protein 6.9 g/dL (6.3-8.2) 10/04/17 03:55 Albumin 3.5 g/dL (3.9-5) L 10/04/17 03:55 Albumin/Globulin Ratio 1.0 % 10/04/17 03:55 Urine Color Yellow (Yellow) 10/03/17 16:45 Urine Turbidity Clear (Clear) 10/03/17 16:45 Urine pH 5.0 (5.0-7.0) 10/03/17 16:45 Ur Specific [place] 1.026 (1.003-1.030) 10/03/17 16:45 Urine Protein 100 mg/dl mg/dL (Negative) 10/03/17 16:45 Urine Glucose (UA) Neg mg/dL (Negative) 10/03/17 16:45 Urine Ketones 20 mg/dL (Negative) 10/03/17 16:45 Urine Blood Sm (Negative) 10/03/17 16:45 Urine Nitrite Neg (Negative) 10/03/17 16:45 Urine Bilirubin Neg (Negative) 10/03/17 16:45 Urine Urobilinogen 2.0 mg/dL (<2.0) 10/03/17 16:45 Ur Leukocyte Esterase Neg (Negative) 10/03/17 16:45 Urine WBC (Auto) 2.0 /HPF (0.0-6.0) 10/03/17 16:45 Urine RBC (Auto) 7.0 /HPF (0.0-6.0) 10/03/17 16:45 U Epithel Cells (Auto) 1.0 /HPF (0-13.0) 10/03/17 16:45 Urine Bacteria (Auto) 1+ /HPF (Negative) 10/03/17 16:45 Hyaline Casts 13 /LPF 10/03/17 16:45 Urine Mucus 3+ /HPF 10/03/17 16:45
[2017-10-07] MEDS: DUONEB *Not for PRN Use IH SCH ×3 (02:31→13:47)
[2017-10-07] MEDS: HALFPRIN EC PO SCH (10:33)
[2017-10-07] MEDS: PEPCID PO SCH (10:33)
[2017-10-07] MEDS: MUCINEX ER PO SCH (10:33)
[2017-10-07] MEDS: LOVENOX SUB-Q SCH (10:33)
[2017-10-07] MEDS: COLCRYS PO SCH (10:52)
[2017-10-07 14:13] VITALS: BP 141/68
--- NOTE | 2017-10-07 15:55 | Discharge Summary ---
Providers - Providers Date of Admission: 10/03/17 19:18 Attending physician: NATTY SANON MD 10/06/17 18:23 Physical Therapy Evaluation and Treat [CONS] Routine Comment: Reason For Exam: debility 10/03/17 19:35 Consult to Physician [CONS] Routine Consulting Provider: JARETH UREÑA Reason For Exam: COPD Place consult to:: Notified:: Phone number called:: [phone] Was contact made?: Yes If yes, spoke with:: KIMBERLI Time called:: 08:00 Comment:: JOSELIN 10/05/17 19:39 Consult to Wound/ET Nurse [CONS] Routine Reason For Exam: wound eval, L. 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 He was found to have pneumonia, he received antibiotics, steroids and nebulizers and oxygen supplementation. He clinically improved and was subsequently discharged home with services Discharge diagnoses Pneumonia Sepsis Left lateral thigh wound, COPD exacerbation Acute on chronic hypoxic respiratory failure Complete immobility due to frailty Gout Disposition: TO HOME OR SELFCARE Time spent for discharge: 33 minutes Core Measure Documentation - Palliative Care Palliative Care/ Comfort Measures: Not Applicable - Core Measures Any of the following diagnoses?: none Exam - Physical Exam Narrative exam: VITAL SIGNS: Reviewed. GENERAL: Chronically ill-appearing patient. Vital signs as documented. HEAD: No signs of head trauma. EYES: Pupils are equal. Extraocular motions intact. EARS: Hearing grossly intact. MOUTH: Oropharynx is normal. NECK: No adenopathy, no JVD. CHEST: Chest with diminished breath sounds bilaterally. No wheezes, rales, or rhonchi. CARDIAC: Regular rate and rhythm. S1 and S2, without murmurs, gallops, or rubs. VASCULAR: No Edema. Peripheral pulses normal and equal in all extremities. ABDOMEN: Soft, without detectable tenderness. No sign of distention. No rebound or guarding, and no masses palpated. Bowel Sounds normal. MUSCULOSKELETAL: Good range of motion of all major joints. Extremities without clubbing, cyanosis or edema. NEUROLOGIC EXAM: Alert and oriented x 3. No focal sensory or strength deficits. Speech normal. Follows commands. Nonambulatory. Bedbound. PSYCHIATRIC: Mood normal. SKIN: Left lateral thigh wound, well-healed graft site on the right medial thigh - Constitutional Vitals: Temp Pulse Resp BP Pulse Ox 97.6 F 84 17 141/68 97 10/07/17 13:27 10/07/17 13:48 10/07/17 13:48 10/07/17 13:27 10/07/17 13:27 Plan Follow up with: JENNIFER SEVERINO MD [Primary Care Provider] - 3-5 Days Prescriptions: Amoxicillin/Potassium Clav [Augmentin 875-125 Tablet] 1 each PO Q12H #8 tablet Aspirin [Adult Low Dose Aspirin EC] 81 mg PO DAILY #30 tablet.dr Azithromycin 250 mg PO DAILY #2 tablet Colchicine [Colcrys] 0.6 mg PO BID #60 tablet Docusate Sodium [Colace CAP] 100 mg PO QDAY PRN #30 capsule PRN Reason: Constipation guaiFENesin ER [Mucinex ER] 600 mg PO Q12H #60 tablet oxyCODONE /ACETAMINOPHEN [Percocet 5/325 mg] 1 tab PO Q6H PRN #14 tablet PRN Reason: Pain, Moderate (4-6) predniSONE [Deltasone] 10 mg PO .TAPER #48 tab
[2017-10-07] MEDS: cefTRIAXone 2 GM in NACL 0.9% 20 ML IV SCH (18:53)
[2017-10-07] MEDS: ZITHROMAX 500 MG in NACL 0.9% 250ML 250 ML IV SCH (18:53)
--- NOTE | 2017-10-07 20:15 | Progress Note ---
Assessment and Plan Patient alert, awake. No acute respiratory distress. O2 saturation 97% on 3 litres O2.Patients PO2 54 on room air. Patient is candidate for home O2. - Patient Problems (1) COPD with exacerbation Status: Acute Plan to address problem: O2 3 litres via nasal canula. Albuterol/atrovent aerosol treatments q 6 hours. Continue I/V solumedral. (2) Respiratory failure with hypoxia Status: Acute Qualifiers: Chronicity: acute Qualified Code(s): J96.01 - Acute respiratory failure with hypoxia Plan to address problem: O2 3 litres via nasa canula. Albuerol/atrovent aerosol treatments q 6 hurs. Cntinue I/V solumedral. Continue S/C Lovenox. Continue famotadine. (3) Pneumonia Status: Acute Plan to address problem: Patient is on ceftrioxone and zithromax. (4) H/O pneumonectomy Status: Acute Plan to address problem: Patient has history of right pneumonectomy. Subjective Date of service: 10/07/17 Interval history: Patient alert, awake. No acute respiratory distress. O2 saturation 97% on 3 litres O2.Patients PO2 54 on room air. Patient is candidate for home O2. Objective Vital Signs - 12hr 10/07/17 10/07/17 10/07/17 09:57 09:58 10:00 Temperature Pulse Rate Pulse Rate [ 87 Anterior Bilateral Throughout] Respiratory 20 Rate Respiratory 17 Rate [Anterior Bilateral Throughout] Blood Pressure O2 Sat by Pulse 98 Oximetry 10/07/17 10/07/17 13:27 13:48 Temperature 97.6 F Pulse Rate 70 Pulse Rate [ 84 Anterior Bilateral Throughout] Respiratory 19 Rate Respiratory 17 Rate [Anterior Bilateral Throughout] Blood Pressure 141/68 O2 Sat by Pulse 97 Oximetry Constitutional: no acute distress, alert Eyes: non-icteric ENT: oropharynx moist Neck: supple, no lymphadenopathy Ascultation: Right: diminished breath sounds (ABsent breath sounds on right side.), Bilateral: rhonchi ( few rhonchi on left side.) Cardiovascular: regular rate and rhythm Gastrointestinal: normoactive bowel sounds Extremities: no cyanosis, no edema Neurologic: non-focal exam, pupils equal and round, other (Patient is in deep sleep) Psychiatric: other (Patient is in deep sleep) CBC and BMP: 10/05/17 06:29 10/05/17 06:29 ABG, PT/INR, D-dimer: ABG POC ABG pH 7.310 (7.35-7.45) L 10/03/17 15:52 POC ABG pCO2 79.8 (35-45) H 10/03/17 15:52 POC ABG pO2 54 (80-105) L 10/03/17 15:52 POC ABG HCO3 40.1 10/03/17 15:52 POC ABG Total CO2 43 10/03/17 15:52 POC ABG O2 Sat 82 10/03/17 15:52 PT/INR, D-dimer PT 13.7 Sec. (12.2-14.9) 10/03/17 14:50 INR 1.00 (0.87-1.13) 10/03/17 14:50 Abnormal lab findings: Abnormal Labs 10/03/17 10/03/17 10/03/17 14:50 14:50 14:50 WBC RBC Hct RDW Lymph % (Auto) 5.5 L [place] % (Auto) 10.3 H Lymph # 0.5 L [place] # 0.9 H Seg Neutrophils % 83.7 H Seg Neuts % (Manual) Lymphocytes % (Manual) Seg Neutrophils # Man Lymphocytes # (Manual) POC ABG pH POC ABG pCO2 POC ABG pO2 VBG pH 7.310 L Chloride 95.2 L Carbon Dioxide 35 H BUN Creatinine 0.6 L Glucose 137 H Lactic Acid Calcium Alkaline Phosphatase Albumin 3.2 L 10/03/17 10/03/17 10/04/17 15:52 17:42 03:55 WBC 11.2 H RBC 5.04 H Hct 46.4 H RDW 15.3 H Lymph % (Auto) [place] % (Auto) Lymph # [place] # Seg Neutrophils % Seg Neuts % (Manual) 78.0 H Lymphocytes % (Manual) 3.0 L Seg Neutrophils # Man 8.7 H Lymphocytes # (Manual) 0.3 L POC ABG pH 7.310 L POC ABG pCO2 79.8 H POC ABG pO2 54 L VBG pH Chloride Carbon Dioxide BUN Creatinine Glucose Lactic Acid 2.20 H* Calcium Alkaline Phosphatase Albumin 10/04/17 10/05/17 10/05/17 03:55 06:29 06:29 WBC 12.3 H RBC Hct RDW Lymph % (Auto) [place] % (Auto) Lymph # [place] # Seg Neutrophils % Seg Neuts % (Manual) Lymphocytes % (Manual) Seg Neutrophils # Man Lymphocytes # (Manual) POC ABG pH POC ABG pCO2 POC ABG pO2 VBG pH Chloride 95.2 L Carbon Dioxide 35 H 31 H BUN 24 H 30 H Creatinine 0.7 L Glucose 176 H 148 H Lactic Acid Calcium 8.3 L Alkaline Phosphatase 132 H Albumin 3.5 L
== END 2017-10-07 19:15 | disposition home or self-care (01) | DRG 871 ==
LOC: ED 14:09 → 2B-ACE 19:18
PROVIDERS: ADMIT Internal Medicine; ATTEND Internal Medicine
PROC: 4A033R1 Measurement of Arterial Saturation, Peripheral, Percutaneous Approach (ICD-10-PCS; 2017-10-03)
PROC: 3E0234Z Introduction of Serum, Toxoid and Vaccine into Muscle, Percutaneous Approach (ICD-10-PCS; principal; 2017-10-06)
DX: A41.9 Sepsis, unspecified organism (principal); J69.0 Pneumonitis due to inhalation of food and vomit; J96.02 Acute respiratory failure with hypercapnia; J96.21 Acute and chronic respiratory failure with hypoxia; R53.2 Functional quadriplegia; J44.1 Chronic obstructive pulmonary disease with (acute) exacerbation; J44.0 Chronic obstructive pulmonary disease with (acute) lower respiratory infection; M10.9 Gout, unspecified; S71.102A Unspecified open wound, left thigh, initial encounter; X58.XXXA Exposure to other specified factors, initial encounter; Y93.89 Activity, other specified; Z23 Encounter for immunization; Z90.2 Acquired absence of lung [part of]; Y92.89 Other specified places as the place of occurrence of the external cause; Y99.8 Other external cause status; Z87.891 Personal history of nicotine dependence; Z95.1 Presence of aortocoronary bypass graft
CPT/HCPCS: 36415; 71010; 71250; 80048; 80053; 81001; 82140; 82803; 82805; 83036; 85007; 85025; 85027; 85610; 87040; 87086; 87400; 90686; 93005; 93010; 94640; 94760; 96372; 96374; J0456; J0696; J1650; J1956; J2920; J2930; J7030; J7050